=== PATIENT | male | born 1985 | race Hispanic/Latino ===

== ENCOUNTER 2024-09-16 15:58 | Emergency (ER) | payer OTHER ==
[2024-09-16] VITALS (7 sets, daily range): BP systolic 117–134; BP diastolic 81–84
[~2024-09-16] VITALS: Ht 175.3 cm; Wt 68.0 kg
[2024-09-16] MEDS ORDERED: KETOROLAC TROMETHAMINE 15 MG/ML SDV IV ONE (17:15)
[2024-09-16 17:37] LABS: BASO% 0.3 % (0-3); HEMATOCRIT 41.7 % (39.0-50.0); HEMOGLOBIN 14.3 g/dl (14.0-18.0); IMMATURE GRANULOCYTES 0.2 % (0.0-5.0); LYMPH% 20.6 % (15-41); MEAN CELL VOLUME 94.3 fL CALC (80.0-100.0); MEAN CORPUSCULAR HGB 32.4 pG CALC (26.0-32.0); MEAN CORPUSCULAR HGB CONC 34.3 g/dL CAL (32.0-36.0); MONO% 6.1 % (2-13); NEUT# 8.57 thou/uL (1.82-7.42); NEUT% 71.8 % (42-76); RED BLOOD COUNT 4.42 mill/uL (4.70-6.10); RED CELL DISTRI WIDTH 12.7 % (11.5-15.5)
[2024-09-16 18:09] LABS: ALBUMIN 4.6 g/dL (3.2-5.0); BILIRUBIN, TOTAL 0.8 mg/dL (0.2-1.3); CREATININE 0.8 mg/dL (0.7-1.3); POTASSIUM 4.3 mmol/l (3.5-5.1); TOTAL PROTEIN 8.3 g/dL (6.3-8.2)
[2024-09-16] MEDS ORDERED: MOTRIN400 MG/TAB PO (19:07)
== END 2024-09-16 19:35 | disposition home or self-care (01) | DRG 556 ==
LOC: ED 15:58
PROVIDERS: Family Medicine
DX: M25.552 Pain in left hip (principal); L72.9 Follicular cyst of the skin and subcutaneous tissue, unspecified; W01.0XXA Fall on same level from slipping, tripping and stumbling without subsequent striking against object, initial encounter; Y99.0 Civilian activity done for income or pay
CPT/HCPCS: J1885; Q9967